=== PATIENT | male | born 1990 | race Caucasian/White ===

== ENCOUNTER 2025-04-23 21:40 | Emergency (ER) | payer OTHER, SELFPAY ==
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
[2025-04-23 21:47] VITALS: BP 184/109; PULSE 100; RESP 18; TEMP 36.8; O2SAT 95
[2025-04-24 03:03] VITALS: BP 188/109; PULSE 99; RESP 14; TEMP 37.2; O2SAT 95
[2025-04-24 03:04] VITALS: BP 188/109; PULSE 94; RESP 13; TEMP 37.2; O2SAT 94
[2025-04-24 03:18] VITALS: BP 170/82; PULSE 91; RESP 14; O2SAT 95
[2025-04-24 04:05] LABS: Hematocrit 50.3 % (42.0-52.0); Hemoglobin 16.2 g/dL (14.0-18.0); Immature Granulocyte Percent A 0.4 % (0-0.5); Lymphocytes Absolute Auto 3.02 K/mm3 (0.9-3.2); Mean Corpuscular HGB Conc 32.2 g/dl (32-36); Mean Corpuscular Hemoglobin 28.5 pg (26-34); Mean Corpuscular Volume 88.6 fl (80-100); Nucleated Red Blood Cells Absolute Auto 0.000 K/mm3 (0.0-0.012); Nucleated Red Blood Cells Perc 0.0 % (0.0-0.2); Platelet Count Result 273 k/mm3 (150-375); Red Blood Count 5.68 M/mm3 (4.6-6.20); White Blood Count 11.1 K/mm3 (4.5-10.0)
[2025-04-24 04:24] LABS: Alanine Aminotransferase 39 U/L (6-50); Albumin Level 4.2 g/dL (3.5-5.1); Alkaline Phosphatase 94 U/L (38-126); Anion Gap 8 mmol/L (4-12); Aspartate Amino Transferase 30 U/L (17-59); Bilirubin,Total 0.5 mg/dL (0.2-1.3); Blood Urea Nitrogen 10 mg/dL (9-20); Calcium 9.3 mg/dL (8.4-10.2); Carbon Dioxide 27 mmol/L (22-30); Chloride 97 mmol/L (98-107); Estimated CRCL calculation 273 ml/min; Estimated Glomerular Filt Rate > 60; Glucose 277 mg/dL (65-110); Magnesium 1.8 mg/dL (1.6-2.3); Potassium 4.6 mmol/L (3.4-5.0); Sodium 132 mmol/L (137-145); Total Protein 8.0 g/dL (6.3-8.2)
--- NOTE | 2025-04-24 04:35 | ED_ITS ---
HPI - General Adult General Chief complaint: Recheck/Abnormal Lab/Rx Stated complaint: high blood pressure Time Seen by Provider: 04/24/25 04:23 History of Present Illness HPI narrative: Patient is a 34-year-old male who presents emergency department this evening complaining of hypertension. Patient admits that he does have a history of high blood pressure but states that he has not been taking his medications. When asked when the last time he took his meds and patient states that he cannot recall. Patient is a poor historian. Denies any symptoms at this time. Per chart review, patient had lisinopril 10 mg filled on April 21 2025 and for some unknown reason patient is not taking this medication. Related Data Allergies Allergy/AdvReac Type Severity Reaction Status Date / Time No Known Allergies Allergy Verified 04/24/25 03:07 Review of Systems 2 Review of Systems: All systems are reviewed and are negative unless stated otherwise in the HPI. Exam 2 Narrative: General: Alert, awake, afebrile, in no acute distress. HEENT: PERRL, no rhinorrhea, no post nasal drip, oropharynx clear. Neck: Trachea midline, no JVD, no lymphadenopathy. Cardiovascular: Regular rate and rhythm, no murmurs, rubs or gallops, no peripheral edema. Respiratory: Clear to auscultation bilaterally, no tachypnea, no wheezing, no rhonchi, no rubs, no respiratory distress. Abdomen: Soft, nontender, nondistended, no rebound, no guarding, no peritoneal signs. Musculoskeletal: No joint swelling or deformity, normal muscle tone. Skin: No rashes or petechia, no signs of infection. Psychiatric: Alert and oriented, normal behavior and judgment for situation. Neurological: Alert and oriented to person, place, and time. Follows all commands. No focal deficits, speech is clear and fluent. Course Vital Signs Vital signs: Vital Signs Temperature 98.3 F 04/23/25 21:47 Pulse Rate 100 04/23/25 21:47 Respiratory Rate 18 04/23/25 21:47 Blood Pressure 184/109 H 04/23/25 21:47 Pulse Oximetry 95 04/23/25 21:47 Oxygen Delivery Room Air 04/23/25 21:47 Temperature 98.9 F 04/24/25 03:04 Pulse Rate 91 04/24/25 03:18 Respiratory Rate 14 04/24/25 03:18 Blood Pressure 170/82 H 04/24/25 03:18 Pulse Oximetry 95 04/24/25 03:18 Oxygen Delivery Room Air 04/24/25 03:03 Medical Decision Making MDM Narrative Medical decision making narrative: The patient was evaluated by myself in the emergency department. History is obtained from patient who is an independent historian and physical exam was performed. External medical records were reviewed at this time. IV was established and pertinent tests were ordered. Per chart review, it does appear that the patient has lisinopril 10 mg as a home medication and he was administered his home dose medication of lisinopril 10 mg. Laboratory results obtained revealing no acute process. Differential diagnosis considerations include hypertensive urgency versus emergency, medical noncompliance. Comorbidities impacting this visit include history of hypertension and medical noncompliance. I have evaluated and discussed social determinants of health with the patient that could potentially impact subsequent diagnosis and treatment plans. On repeat assessment of the patient, reevaluation revealed that the patient is doing well and is in no acute distress. Patient symptoms have remained stable since he arrived to our emergency department. Repeat vital signs were all reviewed and noted to be stable. Differential diagnosis and treatment plan were discussed with the patient at bedside. Patient agrees with discussion and after shared medical decision making agrees with discharge. All questions were answered to the patient's satisfaction. Patient will follow up with his PCP in 3-5 days. Instructed on the importance of taking his blood pressure medications as prescribed. Patient was provided with strict return precautions and instructed to return to the emergency department if any new or worsening symptoms develop. The patient was discharged in stable condition. Vital Signs Vital Signs: Vital Signs Temperature 98.3 F 04/23/25 21:47 Pulse Rate 100 04/23/25 21:47 Respiratory Rate 18 04/23/25 21:47 Blood Pressure 184/109 H 04/23/25 21:47 Pulse Oximetry 95 04/23/25 21:47 Oxygen Delivery Room Air 04/23/25 21:47 Temperature 98.9 F 04/24/25 03:04 Pulse Rate 91 04/24/25 03:18 Respiratory Rate 14 04/24/25 03:18 Blood Pressure 170/82 H 04/24/25 03:18 Pulse Oximetry 95 04/24/25 03:18 Oxygen Delivery Room Air 04/24/25 03:03 Lab Data 04/24/25 03:59 04/24/25 03:59 Labs: Lab Results 04/24/25 Range/Units 03:59 WBC 11.1 H (4.5-10.0) K/mm3 RBC 5.68 (4.6-6.20) M/mm3 Hgb 16.2 (14.0-18.0) g/dL Hct 50.3 (42.0-52.0) % MCV 88.6 (80-100) fl MCH 28.5 (26-34) pg MCHC 32.2 (32-36) g/dl RDW 12.9 (11.5-14.5) % Plt Count 273 (150-375) k/mm3 MPV 10.8 H (7.4-10.4) fl Immature Gran % (Auto) 0.4 (0-0.5) % Neut % (Auto) 63.2 (45.5-73.1) % Lymph % (Auto) 27.1 (18.3-44.2) % [place] % (Auto) 7.3 (2.6-8.5) % Eos % (Auto) 1.7 (0-4.4) % Baso % (Auto) 0.3 (0.2-1.2) % Lymph # (Auto) 3.02 (0.9-3.2) K/mm3 [place] # (Auto) 0.8 H (0.1-0.6) K/mm3 Eos # (Auto) 0.2 (0-0.3) K/mm3 Baso # (Auto) 0.0 (0.0-0.1) K/mm3 Abs Immat Gran (auto) 0.04 H (0.00-0.031) K/mm3 Absolute Neuts (auto) 7.1 H (1.3-6.7) K/mm3 Absolute Nucleated RBC 0.000 (0.0-0.012) K/mm3 Nucleated RBC % 0.0 (0.0-0.2) % Sodium 132 L (137-145) mmol/L Potassium 4.6 (3.4-5.0) mmol/L Chloride 97 L (98-107) mmol/L Carbon Dioxide 27 (22-30) mmol/L Anion Gap 8 (4-12) mmol/L BUN 10 (9-20) mg/dL Creatinine 0.55 L (0.7-1.3) mg/dL Estim Creat Clear Calc 273 ml/min Estimated GFR > 60 (59 - ) Glucose 277 H (65-110) mg/dL Calcium 9.3 (8.4-10.2) mg/dL Magnesium 1.8 (1.6-2.3) mg/dL Total Bilirubin 0.5 (0.2-1.3) mg/dL AST 30 (17-59) U/L ALT 39 (6-50) U/L Alkaline Phosphatase 94 (38-126) U/L Total Protein 8.0 (6.3-8.2) g/dL Albumin 4.2 (3.5-5.1) g/dL Discharge Plan Discharge Clinical Impression: Hypertension, Medical non-compliance Patient Disposition: Home Condition: Stable Instructions: Antibiotic Form, Hypertension (ED) Additional Instructions: Please follow-up with your family doctor within the next 3-5 days. Take your blood pressure medications as prescribed as this is extremely important. Return to the ED if any new or worsening symptoms develop. Patient Language: Malay Follow-up/Referrals: Dennis,Mikie Sage MD [Primary Care Provider, Family Practice] - 3 Days Time of Disposition: 04:41
--- OUTSIDE RECORDS SUMMARY | 2025-04-24 04:40 | XMS_ITS | Encounter Summary ---
Author Organization [facility] Address [address] [place] [address] Care Team Providers Care Fast Food Team Member Name Role Phone None, Provider Primary Care Provider Unavaila Manjeet Ferrell Primary Care Provider [phone] Asaf Ceballos MD Primary Care Provider None, Provider Primary Care Provider Unavaila ble Encounter Details Date Type Department Care Team (Late st Contact Info) Description 01/23/2019 Abstract [facility] CONVERSION [address] [place] [address] , Generic Conversion, Social History Tobacco Use Types Packs/Day Years Used Date Smoking Tobacco: Never Assessed Sex and Gender Information Value Date Recorded Sex Assigned at Male 11/21/2024 2:52 PM CDT Legal Sex Male 11:10 PM FOREPART 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 Gender Identity Not on file Sexual Orientation Not on file documented as of this encounter Plan of Treatment Not on file documented as of this encounter Visit Diagnoses Not on filedocumented in this encounter Care Teams Fast Food Team Member Relationship Specialty Start Date End Date None, ProviderMD PCP - General 02/04/19 11/12/19 Manjeet Blanco PA [address] [place] [phone] PCP - General PHYSICIAN DRY CELL TESTER 11/13/19 01/12/23 Asaf Ceballos MD [address] [place] [phone] PCP - General FAMILY PRACTICE 01/13/23 11/20/24 None, Provider, MD PCP - General UNKNOWN PHYSICIAN SPECIALTY 11/21/24 documented as of this encounter
--- OUTSIDE RECORDS SUMMARY | 2025-04-24 04:40 | XMS_ITS | Clinical Summary ---
Author Organization [facility] Address [address] [place] [address] Care Team Providers Care Allergist Name Role Phone None, Provider MD Primary Care Provider Unavaila ble Allergies No known active allergies Medications metFORMIN ER (GLUCOPHAGE-XR) 500 MG 24 hr tablet Take 1 tablet (500 mg total) by mouth daily with breakfast. 30 tablet 11/21/2024 Active lisinopril-hydro CHLOROthiazide (ZESTORETIC) 20-25 MG tablet Take 1 tablet by mouth daily. 30 tablet 11/21/2024 Active Active Problems Problem Noted Date Diagnosed Date History of rib fracture 01/13/2023 Immunizations Immunization Administration Dates Next Due Tdap (Boostrix) 12/03/2023 Social History Tobacco Use Types Packs/Day Years Used Date Smoking Tobacco: Every Day Cigarettes 0.5 15 Smokeless Tobacco: Never Tobacco Cessation:Ready to Q uit: Not Asked; Counseling Given: Not Answered Alcohol Use Standard Drinks/Week Comments No 0 (1 standard drink = 0.6 oz pur e alcohol) Humiliation, Afraid, Rape, and Kick questionnair e Answer Date Recorded Within the last year, have y ou been afraid of your partner or ex-partner? No 01/13/2023 Within the last year, have y ou been humiliated or emotionally abused in other ways by your partner or ex-partner? No Within the last year, have y ou been kicked, hit, slapped, or otherwise physically hurt by your partner or ex-partner? No 01/13/2023 Within the last year, have y ou been raped or forced to have any kind of sexual activity by your partner or ex-partner? No 01/13/2023 AUDIT-C Answer Date Recorded Frequency of Alcohol Consumption Never 02/04/2019 Average Number of Drinks Not on file 019 Frequency of Binge Drinking Not on file 01/17 Overall Financial Resource Strain (CARDIA) Answe r Date Recorded How hard is it for you to pa y for the very basics like food, housing, medical care, and heating? Not hard at all 01/13/2023 Hunger Vital Sign Answer Date Recorded Within the past 12 months, y ou worried that your food would run out before you got the money to buy more. Never true 01/14/20 23 Within the past 12 months, t he food you bought just didn't last and you didn't have money to get more. Never true 01/13/2023 PRAPARE - Transportation Answer Date Re corded In the past 12 months, has l ack of transportation kept you from medical appointments or from getting medications? No 12/17 In the past 12 months, has l ack of transportation kept you from meetings, work, or from getting things needed for daily living? No 01/13/2023 Housing Stability Vital Sign Answer Dae e Recorded In the last 12 months, was t here a time when you were not able to pay the mortgage or rent on time? No 01/13/2023 In the last 12 months, how many places have you lived? 1 01/13/2023 In the last 12 months, was t here a time when you did not have a steady place to sleep or slept in a correction (including now)? No 01/13/2023 Sex and Gender Information Value Date Recorded Sex Assigned at Male 11/21/2024 2:52 PM CDT Legal Sex Male 11:10 PM [employer] Gender Identity Not on file Sexual Orientation Not on file Last Filed Vital Signs Vital Sign Reading Time Taken Comments Blood Pressure 191/117 11/21/2024 4:14 PM CDT Pulse 97 11/21/2024 4:14 PM CDT Temperature 35.6 C (96.1 F) 11/21/2024 2:42 PM CDT Respiratory Rate 18 11/21/2024 4:14 PM CDT Oxygen Saturation 99% 11/21/2024 4:14 PM CDT Inhaled Oxygen Concentration - - Weight 188.3 kg (415 lb 2 oz) 11/21/2024 2:42 PM CDT Height 180.3 cm (5' 11) 11/21/2024 2:42 PM CDT Body Mass Index 57.9 11/21/2024 2:42 PM CDT Plan of Treatment Health Maintenance Due Date Last Done Comments Kidney Health Evaluation 1992 Lipid Panel 1992 Annual Physical 1995 Diabetes: Retinopathy Eye Exam 2010 Hepatitis C 2010 Pneumococcal Vaccine: Pediatrics (0 to 5 Years) and At-Risk Patients (6 to 49 Years) (1 of 2 - PCV) 2011 HPV Vaccines (1 - 3-dose SCDM series) 2019 Hemoglobin A1C 07/17/2023 01/14/2023 COVID-19 Vaccine ( season) 2025 DTaP, Tdap and Td Vaccines (8 - Td or Tdap) 12/02/2033 12/03/2023, 02/10/2007, 03/23/1998, Additional history exists Hepatitis B Vaccines Completed 12/16/2002, 03/23/1998, 04/30/1996 Meningococcal Vaccine Aged Out 02/10/2007 No humberto tanya eligible based on patient's age to complete this topic Meningococcal B Vaccine Aged Out No l onger eligible based on patient's age to complete this topic RSV Immunizations Under 20 Months Aged Out No longer eligible based on patient's age to complete this topic Procedures Procedure Name Priority Date/Time Associated Diagnosis Comments HEMOGLOBIN, GLYCOSYLATED Routine 01/14/2023 5:17 AM CDT from Last 3 Months or Most Recently Relevant to Health Maintenance Results * (ABNORMAL) HEMOGLOBIN, GLYCATED (01/14/2023 5:17 AM CDT) HGB A1C 7.2(H) <5.7 % 01/14/2023 5:59 AM CDT [facility] Comment: 5.7 TO 6.4% INCREASED RISK OF DIABETES > OR = 6.5% CONSISTENT WITH DIABETES PER ADA GUIDELINES ESTIMATED AVG GLUCOSE 160(H) 70 - 140 MG/DL 01/14/2023 5:59 AM CDT [facility] 01/14/2023 5:17 AM CDT us Caitlin Arellano NP LABORATORY Final Result [facility] [address] [place] [address], from Last 3 Months or Most Recently Relevant to Health Maintenance Insurance [employer] Advance Directives * Full Code (Latest Code Status on File) Date Activated Date Inactivated Comments 01/13/2023 1:38 PM 01/14/2023 4:31 PM Care Teams Allergist Relationship Specialty Start Date End Date None, Provider, PCP - General UNKNOWN PHYSICIAN SPECIALTY 11/21/24
[2025-04-24 04:46] VITALS: BP 148/100; PULSE 92; RESP 17
[2025-04-24 05:05] VITALS: BP 148/100; PULSE 88; RESP 14; O2SAT 94
== END 2025-04-24 05:08 | disposition home or self-care (01) ==
PROVIDERS: Emergency Provider Emergency Medicine; PCP Family Medicine
DX: I10 Essential (primary) hypertension (principal); T46.4X6A Underdosing of angiotensin-converting-enzyme inhibitors, initial encounter; Z91.128 Patient's intentional underdosing of medication regimen for other reason
CPT/HCPCS: 36415; 80053; 83735; 85025; 99283; A9270